=== PATIENT | female | born 1935 | race Caucasian/White ===

== ENCOUNTER 2019-01-19 22:00 | Inpatient (IN) | payer OTHER ==
[~2019-01-19] VITALS: Ht 157.5 cm; Wt 57.7 kg
[~2019-01-19 22:00] MED LIST: AVISTA; BACTRIM DS TAB1 EACH; IRON325; IRON325 PO; MEDROLDOSEPACK PO; PRILOSEC 20 MG20 MG PO; PROAIR HFA8.5 GM IH; PROTONIX40 M2 PO; SIMVASTATIN40 MG PO; ZPAK PO
[2019-01-19 22:01] VITALS: BP 162/41
[2019-01-19 22:39] LABS: URINE BILIRUBIN NEGATIVE (Negative); URINE BLOOD 1+ (Negative); URINE CLARITY CLEAR; URINE COLOR YELLOW; URINE GLUCOSE-RANDOM* NEGATIVE (Negative); URINE KETONES 3+ (Negative); URINE LEUKOCYTES-REFLEX NEGATIVE (Negative); URINE NITRITE-REFLEX NEGATIVE (Negative); URINE PROTEIN (DIPSTICK) TRACE (Negative); URINE SPECIFIC GRAVITY >= 1.030 (1.005-1.035); URINE UROBILINOGEN 0.2 E.U./dl (0.2-1.0)
[2019-01-19 23:06] LABS: BACTERIA-REFLEX None Seen /HPF (None Seen); CASTS None Seen /LPF (None Seen); CRYSTALS None Seen /LPF (None Seen); MUCUS 0-3 Light strn/LPF (None Seen); SQUAMOUS 4-10 Moderate /LPF (0-3); URINE RBC 3-10 Few /HPF (0-2); URINE WBC-REFLEX None Seen /HPF (0-5)
[2019-01-19 23:40] LABS: ABSOLUTE NEUTROPHILS 11.7 thou/uL (1.4-8.2); BASOPHILS 0.4 % (0.0-2.0); HEMATOCRIT 31.9 % (37.0-47.0); HEMOGLOBIN 10.2 gm/dL (12.0-15.0); MCH 23.6 pg (26.0-34.0); MCHC 32.1 g/dL (28.0-37.0); MCV 73.6 fL (80.0-100.0); MONOCYTES 5.1 % (1.0-8.0); PLATELET COUNT 443 thou/uL (150-400); POLYS 87.5 % (36.0-66.0); RBC 4.33 mil/uL (4.20-5.00); WBC 13.4 thou/uL (4.0-11.0)
[2019-01-19 23:48] LABS: ANION GAP 10 mmol/L (7-16); BUN 17 mg/dL (7-18); CALCIUM 9.3 mg/dL (8.5-10.1); CHLORIDE 102 mmol/L (98-107); CO2 26 mmol/L (21-32); CREATININE 0.8 mg/dL (0.6-1.0); GLUCOSE 149 mg/dL (74-106); POTASSIUM 4.4 mmol/L (3.5-5.1); SODIUM 138 mmol/L (136-145)
[2019-01-20] VITALS (7 sets, daily range): BP systolic 128–151; BP diastolic 46–71
[2019-01-20 00:04] LABS: ALBUMIN 3.4 g/dL (3.4-5.0); MAGNESIUM 2.1 mg/dL (1.8-2.4); SGOT 30 U/L (15-37); SGPT 22 U/L (30-65); TOTAL BILIRUBIN 0.4 mg/dL (<0.1-1.0); TOTAL PROTEIN 7.7 g/dL (6.4-8.2); TROPONIN-I <0.06 ng/mL (<0.06)
[2019-01-20 00:20] LABS: ANISOCYTOSIS 1+; HYPOCHROMASIA 1+; MICROCYTES 1+; OVALOCYTES 1+
--- NOTE | 2019-01-20 04:20 | NUR ---
PATIENT IS A NEW ADMIT D/T FALL AT AROUND SATURDAY 0200 AT HOME. PATIENT AOX4 MAKES NEEDS KNOWN. PATIENT SAYS SHE FEELS WEAK AND MOVING SLOWLY. PATIENT HAS A HEMATOMA ON LEFT EYE AND THE EYE IS SHUT. PATIENT DENIED PAIN OR DISCOMFORT. SKIN WARM AND INTACT AND APPROPRIATE TO RACE. PATIENT USES A BEDSIDE COMMODE. PATIENT HAD A BOWEL MOVEMENT X2. FALL PRECAUTION IN PLACE, CALL LIGHT WITHIN REACH. PATIENT NEED MAXIMUM ASSISTANCE WITH ADL, BED MOBILITY, TRANSFER AND TOILETING. PATIENT INCONTINENT AT TIMES WITH BOWEL AND BLADDER.PERICARE AND BARRIER CREAM APPLIED NEEDED. PATIENT IN BED ASLEEP AT THIS TIME BREATHING REGULAR AND UNLABOURED.
--- NOTE | 2019-01-20 09:12 | EKG ---
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 Claims Supervisor: lowell : 1935 Requested By: Agusto Angeles Order Number: [id number] MD: Allen Carlson Measurements Intervals [place] Rate: 93 P: 47 MA: 119 QRS: -50 QRSD: 92 T: -60 QT: 388 QTc: 483 Interpretive Statements Sinus rhythm Borderline short MA interval Left anterior fascicular block Nonspecific T wave abnormality Compared to ECG 10/01/2016 11:48:14 No significant change was found Electronically Signed On 01-20-2019 9:12:05 PLANT BU[employer] by Allen Carlson [email or web address] ��������������������������������������������� <ELECTRONICALLY SIGNED> ���������������������������������������� By: Allen Carlson MD, [facility] ��������������������������������������������� 01/20/19 0912 2320 Allen Carlson MD, [facility] /EPI
--- NOTE | 2019-01-20 13:59 | H ---
[facility] [place] [address] HISTORY AND PHYSICAL Name: JAMIE WALSH Justin Room #: 461-P ADM IN M.R.#: [id number] Admission: 01/20/19 ������������������ Attend Phys: Cj Boyer Discharge: ������������������ Date of : 39 Report #: [id number] THIS REPORT FOR: //name// CC: Bharat Asif DATE OF SERVICE: 01/20/2019 CHIEF COMPLAINT: Weakness. HISTORY OF PRESENT ILLNESS: The patient is an 83-year-old female who was admitted from home here to the Emergency Room after a fall in the bathroom. She got up in the middle of the night to go to the bathroom and she was preparing to sit on the toilet, sort of lost her balance and fell forward onto her left side. She bumped her head around her left eye on the floor and had a small abrasion with some bleeding. She denied any symptoms of loss of consciousness or pre-event symptoms of lightheadedness or palpitations. However, on the floor, she was too weak to get up or crawl for help and apparently lied in the bathroom for about 4 hours. Ultimately, it sounds her neighbors called to check on her and when she did not answer the phone, they alerted security at her living complex who entered the residence and found her in the bathroom and then called for 911. She was evaluated in the ER and admitted for continued treatment. PAST MEDICAL HISTORY: Dyslipidemia, hiatal hernia, dysphagia. PAST SURGICAL HISTORY: None. FAMILY HISTORY: Noncontributory. SOCIAL HISTORY: She lives in [place] community in the area. She does not receive any support, but there is security available. No chronic alcohol or tobacco use. ALLERGIES: None. MEDICATIONS: Zocor 40 mg. REVIEW OF SYSTEMS: She complains of left hand and left arm weakness. Otherwise, no headache, chest pain, visual change, abdominal pain, nausea, vomiting, diarrhea, constipation or dysuria. PHYSICAL EXAMINATION: VITAL SIGNS: Temperature 36.8, pulse 99, respirations 16, blood pressure 128/48, O2 sat 98% on room air. GENERAL: She is awake and alert, in no distress. HEAD AND NECK: There is bruising and swelling around the left eye. She does seem to have some down turning at the left corner of the mouth. Speech is [address] [address] HISTORY AND PHYSICAL Name: JAMIE WALSH Justin Room #: 461-P [facility] IN ..#: [id number] Admission: 01/20/19 ������������������ Attend Phys: Cj Boyer Discharge: ������������������ Date of : 39 Report #: [id number] fluent. NECK: No bruits. LUNGS: Clear with no wheezing. HEART: Regular, no murmur. ABDOMEN: Soft, normoactive bowel sounds. EXTREMITIES: No edema. NEUROLOGIC: She is oriented to place and situation. She recognized me from the office. 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 She seemed to have normal strength and movement of the left leg and foot. Laboratory and CT data reviewed. ASSESSMENT: 1. Probable stroke. 2. Mild rhabdomyolysis. 3. Microcytic anemia. 4. Accidental fall. PLAN: I will ask for an MRI of the brain. There were some concerning features on the CT head for developing stroke. She does have some neurologic symptoms evidenced by left hand weakness and some left facial droop, although it is hard to tell with the swelling around her left eye. Clearly at this point, she is beyond the therapeutic window for any consideration of thrombolytics, so at this point, if there are signs of stroke, there would be medical treatment only. She has requested do not resuscitate status, so I anticipate medical workup and then treatment conservatively with medications as indicated, therapies and we will see if she needs a structured living environment. I have asked Dr. Hill to see her in consultation. ��������������������������������������������� <ELECTRONICALLY SIGNED> ���������������������������������������� By: Chi Smith MD ��������������������������������������������� 01/20/19 1359 0956 1015 Chi Smith MD /nt
--- NOTE | 2019-01-20 14:13 | 2DMMODE ---
[facility] [address] [place] [address] 2 D/M-MODE ECHOCARDIOGRAM Name: JAMIE WALSH Room #: 461-P [facility] IN ..#: [id number] ������������� Admission: 01/20/19 ������������� Attend Phys: Bharat Jones Discharge: ��� ������������� ��� Date of : 39 Date of Service: 01/20/19 1413 �� Report #: [id number] �������� ��������������������������������������������[id number] THIS REPORT FOR: //name// APPROVED REPORT Study performed: 01/20/2019 12:52:27 EXAM: Comprehensive 2D, Doppler, and color-flow Echocardiogram Patient Location: Bedside Room #: 461 Status: routine BSA: 1.58 HR: 68 bpm BP: 128/48 mmHg Rhythm: NSR Other Information Study Quality: Adequate Indications CVA/TIA Echo Enhancing Agent Indication: Rule out Shunt Agent(s) / Amount(s) Used: Agitated Saline 7 cc 2D Dimensions RVDd: 33.53 mm IVSd: 8.94 (7-11mm) LVOT Diam: 19.34 (18-24mm) LVDd: 43.69 mm PWd: 7.98 (7-11mm) Ascending Ao: 27.14 (22-36mm) LVDs: 30.83 (25-40mm) Aortic Root: 27.26 mm IVC: 19.00 mm Volumes Left Atrial Volume (Systole) Single Plane 4CH: 32.77 mL Single Plane 2CH: 41.18 mL LA ESV Index: 26.00 mL/m2 Aortic Valve AoV Peak Jm.: 1.65 m/s AO Peak Gr.: 10.83 mmHg LVOT Max P.30 mmHg LVOT Max V: 1.04 m/s FLYNN Vmax: 1.85 cm2 [facility] [place] [address] 2 D/M-MODE ECHOCARDIOGRAM Name: JAMIE WALSH Room #: 461-P [facility] IN ..#: [id number] ������������� Admission: 01/20/19 ������������� Attend Phys: Bharat Jones Discharge: ��� ������������� ��� Date of : 39 Date of Service: 01/20/19 1413 �� Report #: [id number] �������� ��������������������������������������������[id number] Mitral Valve E/A Ratio: 0.9 MV Decel. Time: 240.13 ms MV E Max Jm.: 1.04 m/s MV A Jm.: 1.19 m/s MV PHT: 69.64 ms IVRT: 115.34 ms Pulmonary Valve PV Peak Jm.: 0.89 m/s PV Peak Gr.: 3.19 mmHg Pulmonary Vein P Vein S: 0.76 m/s P Vein A: 0.28 m/s P Vein D: 0.51 m/s P Vein A Dur.: 120.0 msec P Vein S/D Ratio: 1.49 Tricuspid Valve TR Peak Jm.: 2.93 m/s TR Peak Gr.: 34.29 mmHg PA Pressure: 39.00 mmHg Left Ventricle The left ventricle is normal size. There is normal LV segmental wall motion. There is normal left ventricular wall thickness. The left ventricular systolic function is normal. The left ventricular ejection fraction is within the normal range. LVEF is 55-60%. Grade I - abnormal relaxation pattern. Right Ventricle The right ventricle is normal size. The right ventricular systolic function is normal. Atria The left atrium size is normal. Interatrial septum is intact without evidence of ASD or PFO. The right atrium size is normal. Aortic Valve The aortic valve is normal in structure. Aortic valve is calcified. No aortic regurgitation is present. There is no aortic valvular stenosis. Mitral Valve The mitral valve is normal in structure. Mild mitral regurgitation. No evidence of mitral valve stenosis. Tricuspid Valve [address] [address] 2 D/M-MODE ECHOCARDIOGRAM Name: JAMIE WALSH Room #: 461-P [facility] IN [facility]#: [id number] ������������� Admission: 01/20/19 ������������� Attend Phys: Bharat Jones Discharge: ��� ������������� ��� Date of : 39 Date of Service: 01/20/19 1413 �� Report #: [id number] �������� ��������������������������������������������[id number] The tricuspid valve is normal in structure. There is mild tricuspid regurgitation. Estimated PAP 39 mmHg. There is mild pulmonary hypertension. Pulmonic Valve The pulmonary valve is normal in structure. Trace pulmonic regurgitation. Great Vessels The aortic root is normal in size. IVC is normal in size and collapses >50% with inspiration. Pericardium There is no pericardial effusion. <Conclusion> The left ventricle is normal size. LVEF is 55-60%. The aortic valve is normal in structure. Aortic valve is calcified. The mitral valve is normal in structure. Mild mitral regurgitation. The tricuspid valve is normal in structure. There is mild tricuspid regurgitation. Estimated PAP 39 mmHg. There is mild pulmonary hypertension. The pulmonary valve is normal in structure. Trace pulmonic regurgitation. There is no pericardial effusion. Interatrial septum is intact without evidence of ASD or PFO. ��������������������������������������������� <ELECTRONICALLY SIGNED> ���������������������������������������� By: Virgilio Sweeney MD ��������������������������������������������� 01/20/19 [phone] Virgilio Sweeney MD /INF
--- NOTE | 2019-01-20 15:47 | NUR ---
PT ADMITTED RELATED TO R MCA CVA. CM REVIEWED CHART AND SPOKE WITH CARE TEAM. CM MET WITH PT AT BEDSIDE THIS DAY. PT IS A&O X4. CM ROLE INTRODUCED. PT INDICATED SHE LIVES IN THE INDEPENDENT LIVING [facility]ID AT [facility]. 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 SHE INDICATED THAT SHE HADN'T USED ANY DME OR HAD ANY HH DRILLER BRAKE LINING. PT INDICATED THAT SHE WAS RECEPTIVE TO POST ACUTE CARE STAY IF RECOMMENDED UPON DC. CM SPOKE ABOUT 5N AND PT WAS RECEPTIVE TO ASSESSMENT. CM TO FOLLOW INDICATED WITH DC PLANNING.
--- NOTE | 2019-01-20 19:19 | NUR ---
PT VS STABLE THROUGHOUT SHIFT. PT WAS ABLE TO TOLERATE TRAVEL FOR VARIOUS MRI, MRA, CT 'S ETC. PT IS COGNIZANT AND CHOHERENT. PT WAS ABLE TO EACH SMALL LUNCH WITHOUT PROBLEMS HOWEVER ST EVAL SHOWED POCTEING AND SOME COUGHING WITH THIN LIQUIDS, DIET CHANGED ACCORDINGLY.
--- NOTE | 2019-01-21 01:36 | NUR ---
Patient admitted for rhabdo head injury. hematoma on left eye. patient not able to move her left arm. patient incontinent this shift pericare and barrier cream applied as needed. patient denied pain or discomfort.patient in bed asleep at this time breathing regular and unlaboured.
[2019-01-21 03:30] VITALS: BP 143/60
[2019-01-21 05:46] LABS: HEMATOCRIT 31.7 % (37.0-47.0); HEMOGLOBIN 9.8 gm/dL (12.0-15.0); MCH 22.9 pg (26.0-34.0); MCHC 31.1 g/dL (28.0-37.0); MCV 73.7 fL (80.0-100.0); RBC 4.3 mil/uL (4.20-5.00); RDW 18.3 % (10.5-14.5); WBC 8.9 thou/uL (4.0-11.0)
[2019-01-21 06:03] LABS: CALCIUM 9.4 mg/dL (8.5-10.1); CREATININE 0.7 mg/dL (0.6-1.0); POTASSIUM 3.9 mmol/L (3.5-5.1)
[2019-01-21 06:10] LABS: CHOLESTEROL 200 mg/dL (<200); HDL CHOLESTEROL 78 mg/dL (>40); LDL CHOLESTEROL 102 mg/dL (<100); TC:HDL 2.6 Ratio (Not establshd); TRIGLYCERIDE 104 mg/dL (<150); VLDL 21 mg/dL (<40)
[2019-01-21 07:25] VITALS: BP 150/53
[2019-01-21 13:48] VITALS: BP 123/56
--- NOTE | 2019-01-21 19:44 | NUR ---
Pt stable durig the shift, no complaints of pain or discomfort verbalized. Left sided weakness has been noted, but pt is able to get up to the commode with 2 persosn assists. PT was toro to work with the pt and was able to ambulate. Speech has evaluated and pt remeins to be in nectar thick liquids and mechanical chopped diet. Left eye remains to be swollen but can now open her eye. Seen by Dr. Hill, mentioned that pt is cleared from his stand point. Pericare and oal medication given.
[2019-01-21 20:00] VITALS: BP 148/58
--- NOTE | 2019-01-22 03:52 | NUR ---
ASSESSMENT: PT REMAIN ALERT AND ORIENT TIMES FOUR. USING BEDPAN DURING THE NIGHT FOR URINATION. VSS, AFEBRILE. NO CODE STATUS NOTED. PT STATE THAT SHE FEELS A LOT BETTER SINCE ADMISSION. LEFT EYE BRUISIING GETTER WATCH DIAL STONER. STILL HAVE LEFT FACIAL DROOPING. GRANITE POLISHER APPRENTICE EQUAL. DENIES PAIN. SR PER MONITOR. CALL BUTTON WITHIN REACH. TOLERATING NEW DIET OF MECH SOFT WITH NECTAR THICK LIQUIDS. PT SLEPT MOST OF THE SHIFT. SLOW PROGRESS WILL CONTINUE TO MONITOR. PT IS A CANIDATE FOR 5 NORTH UPON THEIR ACCEPTANCE OF HER. SLOW PROGESS TOWARDS DC GOALS.
[2019-01-22 05:00] VITALS: BP 134/57
[2019-01-22 07:40] VITALS: BP 126/43
[2019-01-22] MEDS ORDERED: LIPITOR 20 MG T20 M1 PO (10:29)
[2019-01-22] MEDS ORDERED: ASA5UEC PO (10:30)
--- NOTE | 2019-01-22 11:38 | NUR ---
Assumed pt this am, left eye still has bruising but is able to open close to normal. Left sided weakness is noted and left facial droop as well. Pt is tolerating the mechanical soft food and nectar thick liquids. Pt is able to transfer with her walker and gaitbelt from bed to commode and her recliner. Pt stayed in her recliner this am and had her breakfast. Her goal is to walk further today with PT.
--- NOTE | 2019-01-22 12:24 | NUR ---
AWAITING AUTH FOR [place] TO GO TO 5N ACUTE INPATIENT REHAB. CM FOLLOWING.
[2019-01-22 14:11] VITALS: BP 119/46
--- NOTE | 2019-01-22 16:24 | NUR ---
notified by 5n liaison that have insurance auth for acute rehab. pt to dc to 5n today. cm team notified 4w bedside nurse.
[2019-01-22 17:31] VITALS: BP 116/94
--- NOTE | 2019-01-22 19:17 | NUR ---
Pt stable during the shift, was able to walk from the bed to the recliner and spent most of her day there. Was able to work with PT and OT as well. Left eye opens better and bruising has decreased. Mechanical soft diet and nectar thick liquids are well tolerated. Pt has been moved to the rehab unit 511
--- NOTE | 2019-01-23 11:43 | D ---
[facility] [place] [address] DISCHARGE SUMMARY Name: JILLIANJAMIE Room #: 461-P [facility] IN M.R.#: [id number] Admission: 01/20/19 ������������������ Attend Phys: Cj Boyer Discharge: 01/22/19 ������������������ Date of : 39 Report #: [id number] THIS REPORT FOR: //name// CC: Bharat Asif FINAL DIAGNOSES: 1. Acute right middle cerebral artery stroke. 2. Right carotid stenosis. 3. Contusion of the left orbit. 4. Accidental fall. 5. Closed head injury. 6. Rhabdomyolysis. HOSPITAL COURSE: The patient was admitted after being found down at home in a fall. After evaluation and MRI revealed a right middle cerebral artery stroke and carotid stenosis, she was well outside the window of therapeutic option for medical treatment and at this time received conservative care. She was showing signs of left hand and arm weakness and some weakness in the left leg. She had no other medical complications. Dr. Hill saw her from Neurology in consultation. PHYSICAL EXAMINATION: On the day of discharge: GENERAL: She was awake and alert. VITAL SIGNS: Stable. LUNGS: Clear. HEART: Regular. ABDOMEN: Soft and normoactive bowel sounds. EXTREMITIES: No edema. 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 DISPOSITION: She is being transferred to inpatient rehabilitation. She will continue on aspirin and Lipitor. I will follow her stay along with Dr. Wilcox in the recovery phase and in 6 to 12 weeks, we will consider surgical treatment for the carotid stenosis after discussion in the office. ��������������������������������������������� <ELECTRONICALLY SIGNED> ���������������������������������������� By: Chi Smith MD ��������������������������������������������� 01/23/19 1143 1034 1052 Chi Smith MD /nt
--- NOTE | 2019-01-26 13:50 | HC ---
[facility] [place] [address] CONSULTATION Name: JILLIANJAMIE A Room #: 461-P [facility] IN M.R.#: [id number] Admission: 01/20/19 ������������������ Attend Phys: Cj Boyer Discharge: 01/22/19 ������������������ Date of : 37 Report #: [id number] THIS REPORT FOR: //name// CC: Bharat Asif DATE OF SERVICE: 01/20/2019 HISTORY OF PRESENT ILLNESS: This is an 83-year-old female patient who indicates she lives alone. Yesterday, she tried to go to the bathroom and she fell. She was not able to get up. She was there for several hours. Somebody asked the security to open her apartment and then she was brought to the hospital. She was evaluated in the Emergency Room. She had facial injury. They cleared her spine and admitted her. Neurology consultation was requested to evaluate the patient for stroke. REVIEW OF SYSTEMS: Indicate she does have dyslipidemia, but otherwise there are not that many vascular risk factors in this patient. A 14-point review of system was carried out and does not look like she is on any medications here and she already had an echocardiogram that appear unremarkable. She has facial trauma on the left side of the face, but does not look like that has affected her eye. She denies any ENT, cardiac, respiratory, GI, , musculoskeletal, constitutional, dermatological, hematological, psychiatric, throat, allergic symptom associated with present symptomatology except as described above. PAST MEDICAL HISTORY: Negative for stroke. FAMILY HISTORY: Negative for early age stroke. SOCIAL HISTORY: She lives in an independent living. PHYSICAL EXAMINATION: Indicate she is alert, responsive, able to follow simple and complex command. Her speech looks intact. Memory and fund of knowledge is her baseline. Cranial nerve examination 2-12 is difficult because of facial injury, but there is left facial weakness. She is pretty significantly weak in the left upper and left lower extremities. She has significant neglect there. Her position sense is diminished or absent on the left side, but she does not have any hemianopsia. There does not appear to be any cerebellar sign. I could not look at the fundus. Cardiac examinations appear unremarkable. She does not appear to have any respiratory difficulty or rhonchi. Pulses are somewhat difficult to feel. No edema is present. Blood pressure is 134/46, respirations 15, pulse is 80, temperature 98.2. Her vision and hearing looks adequate. She has no obvious thyroid mass. She is obese individual whose hearing and vision looks adequate. LABORATORY DATA: Indicate a white count of 13.4. CPK is 1452. MRI, [address] [address] CONSULTATION Name: JAMIE WALSH Room #: 461-P [facility] IN M.R.#: [id number] Admission: 01/20/19 ������������������ Attend Phys: Cj Boyer Discharge: 01/22/19 ������������������ Date of : 37 Report #: [id number] of the head was reviewed. They are all consistent with a stroke on the right side, probably because of carotid stenosis. Echo was reviewed. IMPRESSION: 1. Large right middle cerebral artery infarct. 2. Carotid stenosis, which need to be addressed once the stroke stabilizes. 3. This patient has a profound neglect of her deficit on the left side. She tried to walk with the neglect not realizing that she is weak and then she fell down and that is what typically happens in these individuals. RECOMMENDATIONS: 1. We will start aspirin. 2. She will probably be a rehab candidate. 3. Carotid stenosis need to be addressed, but the stroke need to stabilize first. 4. I will try to estimate the carotid stenosis by doing a MRA of the carotid. 5. I asked them to give aspirin. 6. Nurses tell me that she has been swallowing okay and she has not shown any signs of aspiration at bedside. I did ask them to give some water and document that bedside swallow is okay. Thank you very much for this referral. ��������������������������������������������� <ELECTRONICALLY SIGNED> ���������������������������������������� By: Shun Hill MD ��������������������������������������������� 01/26/19 1350 1520 [id number] Shun Hill MD /nt
--- NOTE | 2019-01-27 11:02 | HC ---
[facility] [place] [address] CONSULTATION Name: JAMIE WALSH Room #: 461-P [facility] IN .R.#: [id number] Admission: 01/20/19 ������������������ Attend Phys: Cj Boyer Discharge: 01/22/19 ������������������ Date of : 37 Report #: [id number] THIS REPORT FOR: //name// CC: Bharat Asif DATE OF SERVICE: 01/21/2019 HISTORY OF PRESENT ILLNESS: The patient is an 83-year-old white female who lives independently in the [facility] who had a fall in the bathroom. She lost her balance bumped her head on the left. She apparently laid on the floor for about 4 hours. She was admitted, noted to have significant left-sided weakness, upper extremity greater than lower extremity. She was seen by Neurology, noted to have left upper and lower extremity weakness. There was a note of some neglect. 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 She does have carotid stenosis. We are seeing her in rehabilitation medicine consultation. PAST MEDICAL HISTORY: Dyslipidemia, hiatal hernia, dysphagia. PAST SURGICAL HISTORY: None. FAMILY HISTORY: Noncontributory. MEDICATIONS: Please see the full medication listing. This includes vitamins, herbals, and supplements per record. ALLERGIES: No known drug allergies. SOCIAL HISTORY: As noted above. She lives in an independent [facility]. She has a sister and a niece and a nephew that are all in the [place] area. HABITS: No history of chronic alcohol or tobacco abuse. REVIEW OF SYSTEMS: She has the left upper extremity more than the left lower extremity weakness. Denies any headache. No chest pain, shortness of breath, abdominal discomfort. No dysuria, diarrhea, constipation. PHYSICAL EXAMINATION: GENERAL: Pleasant 83-year-old white female in no obvious distress. VITAL SIGNS: Temperature is 97.7, pulse 77, respirations 15, blood pressure 150/53. She is alert. HEENT: Reveals ecchymosis, left facial area and some lateral periorbital ecchymosis. She has an obvious significant left facial droop with depressed left nasolabial fold. She has some dysarthria, but is able to communicate. No obvious word finding problems. EOMs appeared to be full and I could not detect any obvious left-sided visual field neglect to confrontation. [facility] [address] [place] [address] CONSULTATION Name: JAMIE WALSH Room #: 461-P [facility] IN M.R.#: [id number] Admission: 01/20/19 ������������������ Attend Phys: Cj Boyer Discharge: 01/22/19 ������������������ Date of : 37 Report #: [id number] EXTREMITIES: Upon examination of her upper and lower extremities, she does have functional range of motion and strength of the right upper and right lower extremity without focal weakness. Left upper extremity proximal strength is a grade 3 to 3+. No movement was noted of the wrist or fingers at this time. Left lower extremity strength appeared better at more of a grade 3+, possibly 4-. DTRs were somewhat decreased in left upper and left lower extremity. Sensory examination was present, although some mild decreased left upper and left lower extremity to simultaneous stimulation. Functionally, she has been mod assist with toilet transfers, sit to stand was mod assist. She was max assist 5 feet front-wheeled walker. ASSESSMENT: An 83-year-old white female with the following problem list: 1. Right middle cerebral artery infarcts. 2. Right-sided carotid stenosis. 3. 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 4. Left facial droop with some dysarthria. 5. Functional mobility, ADLs and communication deficits. Being evaluated regarding swallow. 6. History of dyslipidemia. 7. Hiatal hernia. PLAN: Agree that the patient would be a good acute in-hospital inpatient rehabilitation candidate. She is very well motivated. Insurance precertification issues to be checked into regarding an acute in-hospital inpatient rehabilitation stay to maximize her functional independence post-CVA. She is appropriate and very motivated regarding her rehabilitation. ��������������������������������������������� <ELECTRONICALLY SIGNED> ���������������������������������������� By: Chi Wilcox MD ��������������������������������������������� 01/27/19 1102 1113 1345 Chi Wilcox MD /nt
== END 2019-01-22 19:51 | DRG 65 ==
LOC: ER 22:00 → EROBS 01-20 00:28 → 4W 01-20 00:28
PROVIDERS: Emergency Medicine; Internal Medicine Geriatric Medicine; Psychiatry & Neurology Neuromuscular Medicine; ADMIT Internal Medicine
DX: I63.511 Cerebral infarction due to unspecified occlusion or stenosis of right middle cerebral artery (principal); M62.82 Rhabdomyolysis; G81.94 Hemiplegia, unspecified affecting left nondominant side; E78.00 Pure hypercholesterolemia, unspecified; S09.90XA Unspecified injury of head, initial encounter; W18.39XA Other fall on same level, initial encounter; Y93.89 Activity, other specified; Y92.89 Other specified places as the place of occurrence of the external cause; Y99.8 Other external cause status; E78.5 Hyperlipidemia, unspecified; K44.9 Diaphragmatic hernia without obstruction or gangrene; R29.810 Facial weakness; R47.1 Dysarthria and anarthria; S05.12XA Contusion of eyeball and orbital tissues, left eye, initial encounter; D50.9 Iron deficiency anemia, unspecified; Z79.899 Other long term (current) drug therapy
CPT/HCPCS: 10045

== ENCOUNTER 2019-01-22 16:20 | Inpatient (IN) | payer OTHER ==
[~2019-01-22] VITALS: Ht 157.5 cm; Wt 73.0 kg
[~2019-01-22 16:20] MED LIST changes: +ASA5UEC PO; +LIPITOR 20 MG T20 M1 PO
[2019-01-22 20:30] VITALS: BP 144/72
--- NOTE | 2019-01-22 23:30 | NUR ---
FROM 4TH FLOOR AT 1900, PATIENT UNDERSTANDS AND IS SIGNING CONSENTS. ORIENTED TO UNIT AND IS LOOKING FORWARD TO WORKING WITH THERAPISTS. AWARE OF NEED FOR MECHANICAL SOFT FOOD AND NECTAR THICK LIQUIDS. WALKER, YELLOW GAIT BELT, AND BSC OBTAINED FOR PATIENT. ABILITY TO USE CALL LIGHT WITH RIGHT HAND VERIFIED. ADMISSION HISTORY AND ASSESSMENT DONE, DID WELL WITH COGNITIVE ASSESSMENT QUESTIONS.
[2019-01-23 05:52] LABS: HEMOGLOBIN 9.7 gm/dL (12.0-15.0); MCH 23.3 pg (26.0-34.0); MCHC 31.4 g/dL (28.0-37.0); MCV 74.1 fL (80.0-100.0); RBC 4.18 mil/uL (4.20-5.00); RDW 18.1 % (10.5-14.5)
[2019-01-23 08:05] LABS: CALCIUM 9.3 mg/dL (8.5-10.1); CREATININE 0.8 mg/dL (0.6-1.0); POTASSIUM 3.9 mmol/L (3.5-5.1)
[2019-01-23 08:56] VITALS: BP 150/57
--- NOTE | 2019-01-23 12:00 | NUR ---
chart review. pt up in wheel chair, pleasant and able to make her needs know. new cva. intro to cm, dcp, transition of care and team meets. alison reported " all independent prior to this, no stair at all. no dme, own medication, cooking, laundry, have lady who cleans q 2 weeks. no past rehab or hh"/alison. will cont following as needed for dc needs.
--- NOTE | 2019-01-23 12:47 | NUR ---
Nutrition: pt admitted to rehab unit with R mid cerebral artery infarcts and seen due to consult, no reason given. Pt with stable weights but c/o decreased appetite over the past 3 days since admit to hospital. Just returned from [facility] and diet upgraded to chopped, regular liquids. Understands how to order meals. Will offer ensure pudding once daily and follow for improved intake. Otherwise low risk.
--- NOTE | 2019-01-23 18:32 | NUR ---
PATIENT ALERT AND ORIENTED. PATIENT PASS SWALLOW TEST. PATIENT EVALUATED BY REHAB TEAM. PATIENT UP TO DINING ROOM FOR MEALS USING HER WALKER. PATIENT HAD VISITORS DURING THE DAY AND NEPHEW IN THE EVENING. PATIENT HAD DIFFICULTY AMBULATING FROM THE BATHROOM AND COULDN'T FIND THE PULL STRING NEXT TO THE TOILET.
[2019-01-23 19:51] VITALS: BP 127/54
--- NOTE | 2019-01-24 04:41 | NUR ---
NOW TOLERATING SIPS OF THIN LIQUIDS. UP TO BATHROOM WITH SBA ONCE UP USING WALKER. 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 DETERMINED TO GET STRONGER. STILL NEEDING ASSIST TO GET FEET BACK UP IN THE BED
[2019-01-24 08:30] VITALS: BP 114/55
--- NOTE | 2019-01-24 14:45 | NUR ---
ASSUMED CARE AT APPROX 0715. PATIENT A/O X4. DENIES PAIN. UP X1 ASSIST, GB AND WALKER. VSS. PARTICIPATING IN THERAPY. PATIENT C/O DISCOMFORT AT IV SITE. SITE ASSESSED, NO ERYTHEMA OR DRAINAGE NOTED. IV REMOVED PER PATIENT REQUEST. MINIMAL SWELLING IN LEFT EXTREMITY AND BLE, LEGS ELEVATED AT REST. FALL PRECAUTIONS IN PLACE. PATIENT CALLS APPROPRIATELY FOR ASSISTANCE. OUT TO TABLES FOR MEALS. RESTING IN RECLINER, FAMILY AT BEDSIDE. WILL CONTINUE TO MONITOR.
[2019-01-24 19:29] VITALS: BP 126/60
--- NOTE | 2019-01-25 04:11 | NUR ---
ASSUMED CARE OF PT AT 1915. PT ALERT AND ORIENTED X4. LUE WEAK, WITH SOME LEFT NEGLECT. SLIGHT LEFT FACIAL DROOP NOTED. AMBULATES TO BATHROOM WITH ASSIST OF ONE USING GAIT BELT AND WALKER. DENIES PAIN, NAUSEA OR DYPSNEA. HAS APPEARED TO BE SLEEPING WHEN CHECKED ON HOURLY ROUNDS. FALL PRECAUTIONS IN PLACE.
[2019-01-25 08:31] VITALS: BP 120/51
--- NOTE | 2019-01-25 19:19 | NUR ---
PATIENT ALERT AND ORIENTED. PATIENT WALKED WITH WALKER AND SBA TO DINING ROOM FOR ALL MEALS. PATIENT REQUESTED AND WAS ABLE TO WASH FACE WHILE SITTING IN CHAIR AND WALKED TO BATHROOM TO BRUSH TEETH. PATIENT SAT IN CHAIR MOST OF THE DAY AND HAD MULTIPLE VISITORS. PATIENT IS VERY MOTIVATED TO MAKE PROGRESS AND WOULD LIKE TO RETURN TO HER [facility]. SHE CONTINUES TO MAKE PROGRESS TOWARDS HER REHAB GOALS.
[2019-01-25 20:00] VITALS: BP 147/56
--- NOTE | 2019-01-26 02:06 | NUR ---
PT ALERT AND ORIENTED X 4. AMB TO BR WITH WALKER AND ASSIST X 1. LEFT SIDED WEAKNESS. PT DENIES PAIN OR DISCOMFORT. BED ALARM ON FOR SAFETY. PT CHECKED ON HOURLY ROUNDS.
[2019-01-26 08:20] VITALS: BP 120/46
--- NOTE | 2019-01-26 13:04 | NUR ---
ASSUMED CARE AT APPROX 0715. REPORTS DIDN'T SLEEP WELL LAST NIGHT. DISCUSSED ABOUT MELATONIN AND SHE SAID SHE WOULD LIKE TO BE ON IT. PATIENT A/O X4. DENIES PAIN. UP X1 ASSIST, GB AND WALKER TO BATHROOM. VSS. PARTICIPATING IN THERAPY. MINIMAL SWELLING IN LEFT EXTREMITY AND BLE, LEGS ELEVATED AT REST. REASSESSMENT PER CHART. BS HYPOACTIVE. REPORTS HAD SMALL HARD BM. GAVE PRN SENNOKOT. NO RESULT YET. DR. CHANDLER MADE ROUND AND NOTIFIED HIM ABOUT INSOMINA AND CONSTIPATION. ORDERS RECEIVED. PT HAS SLURRED SPEECH AND LEFT SIDE WEAKNESS. ST CONTINUE TO WORK WITH PT ON VITAL STEM. PT TOOK MEDS ONE AT THE TIME WITH THIN LIQUID AND TOLERATES WELL. OFFERED SUPPORTIVE CARE. LABS REVIEWED, MEDS GIVEN. ENCOURAGED PT TO CONTINUE TO WORK TOWARD DISCHARGE GOALS. PT IS MOTIVATED, IN GOOD SPIRIT.FALL PRECAUTIONS IN PLACE. PATIENT CALLS APPROPRIATELY FOR ASSISTANCE. OUT TO TABLES FOR MEALS. RESTING IN RECLINER, LEGS UP WHEN SHE IS NOT IN THERAPY. SISTER AT BEDSIDE. WILL CONTINUE TO MONITOR.
[2019-01-26 19:50] VITALS: BP 139/55
--- NOTE | 2019-01-27 02:30 | NUR ---
PT ALERT AND ORIENTED X 4. AMB TO BR WITH WALKER AND ASSIST X 1. LEFT SIDED WEAKNESS. PT TOOK HS MEDS IN APPLESAUCE WITHOUT DIFFICULTY. PT DENIES PAIN OR DISCOMFORT. BED ALARM ON FOR SAFETY. PT APPEARS TO BE SLEEPING ON HOURLY ROUNDS.
--- NOTE | 2019-01-27 09:27 | NUR ---
ASSUMED CARE AT APPROX 0715. REPORTS SLEPT WELL LAST NIGHT WITH MELATONIN. MINIMAL SWELLING IN LEFT EXTREMITY AND BLE, LEGS ELEVATED AT REST. REASSESSMENT PER CHART. HAD LARGE SOFT BM LAST NIGHT. REPORTS COLACE CAUSED STOMACH CRAMP, DOESN'T WANT TO BE ON IT AND WILL EAT MORE FRUITS AND VEGATABLES INSTEAD. DR. CHANDLER AWARES. PT HAS SLURRED SPEECH AND LEFT SIDE WEAKNESS. ST CONTINUE TO WORK WITH PT ON VITAL STEM THIS AM. ATE 100% BREAKFAST. PT TOOK MED ONE AT THE TIME WITH THIN LIQUID AND TOLERATES WELL. OFFERED SUPPORTIVE CARE. ENCOURAGED PT TO CONTINUE TO WORK TOWARD DISCHARGE GOALS. PT IS MOTIVATED, IN GOOD SPIRIT.FALL PRECAUTIONS IN PLACE. PATIENT CALLS APPROPRIATELY FOR ASSISTANCE. OUT TO TABLES FOR MEAL. RESTING IN RECLINER, LEGS UP WHEN SHE IS NOT IN THERAPY. WILL CONTINUE TO MONITOR.
--- NOTE | 2019-01-27 12:54 | NUR ---
team meeting, recommendation: re team with possible dc 02/06/19, defect with left side, will need assist with medication, cooking, money management, paying pills.
[2019-01-27 14:35] VITALS: BP 126/47
[2019-01-27 19:12] VITALS: BP 134/54
--- NOTE | 2019-01-28 04:00 | NUR ---
Assumed care of pt at 1915. Pt alert and oriented x4. Up in chair through the evening. Ambulates to bathroom with SBA of one using gait belt and walker. Left arm remains weak, some neglect noted. Has appeared to be sleeping when checked on hourly rounds. Fall precautions in place.
[2019-01-28 09:30] VITALS: BP 128/56
--- NOTE | 2019-01-28 11:50 | NUR ---
ASSUMED CARE AT APPROX 0715. VSS ON RA. UP TO DINNING FOR BREAKFAST, ATE ABOUT 75% THIS AM. PT REPORTS SLEPT WELL LAST NIGHT WITH MELATONIN. MINIMAL SWELLING IN LEFT EXTREMITY AND BLE, LEGS ELEVATED AT REST. REASSESSMENT PER CHART. LAST BM WAS 2 DAYS AGO. BS HYPOACTIVE. PT DOESN'T LIKE TO TAKE LAXATIVE. OFFERED PRUNE JUICE AND WILL TAKE IT AFTER THERAPIST. PT HAS SLURRED SPEECH AND LEFT SIDE WEAKNESS GETS BETTER. PT HAS URGENCY URINATION. ASSIST PT TO BATHROOM PER REQUEST. ST CONTINUE TO WORK WITH PT ON VITAL STEM THIS AM. PT TOOK MED ONE AT THE TIME WITH THIN LIQUID AND TOLERATES WELL. OFFERED SUPPORTIVE CARE. ENCOURAGED PT TO CONTINUE TO WORK TOWARD DISCHARGE GOALS. PT IS MOTIVATED, IN GOOD SPIRIT.FALL PRECAUTIONS IN PLACE. PATIENT CALLS APPROPRIATELY FOR ASSISTANCE. CALL LIGHT WITH IN REACH. CHECK FREQUENTLY FOR NEEDS AND SAFETY.
--- NOTE | 2019-01-28 12:13 | NUR ---
cm provided report to liaison with w re team with possible dc 02/06/19 " will pass on to [facility] and pt had been talking with [facility] prior to this and she might benefit from al respite stay before going back to her [facility]. [facility] is fine with who every pt wants"/liaison. rediscussed with " do not care, [facility] is fine if have st in needed. thanks for stopping by"/alison. will cont following as needed for dcp, brochure for [facility] left with pt at bedside.
[2019-01-28 19:30] VITALS: BP 154/61
--- NOTE | 2019-01-29 00:31 | NUR ---
PT ASSESSMENT COMPLETED AND VSS. MEDS GIVEN ORDERED AND WELL TOLERATED. UP TO THE BATHROOM WITH ASST/GAIT/WALKER. PT NEEDS HELP LOWERING AND PULLING UP HER PANTS. VOIDING WELL. DENIES NEEDS. WILL CONTINUE TO MONITOR FREQUENTLY.
--- NOTE | 2019-01-29 07:25 | NUR ---
Pt PARTICIPATED IN COMMUNITY REINTEGRATION ON 01/28/19 WITH OT. PLEASE REFER TO OT DOCUMENTATION
[2019-01-29 07:30] VITALS: BP 101/50
--- NOTE | 2019-01-29 16:14 | NUR ---
ASSUMED CARE AT APPROX 0715. PATIENT A/O X4. DENIES PAIN. PARTICIPATING IN THERAPY. UP X1 ASSIST GB AND WALKER. CUES TO ATTEND TO LEFT SIDE. TOLERATED PILLS 1 AT A TIME WITH THIN LIQUIDS WITH ST SUPERVISION. C/O CONSTIPATION, STATED SHE WOULD BE OPEN TO DRINKING PRUNE JUICE OR WARM APPLE JUICE, REPORTED BOWEL AIDS ON EMAR CAUSE HER ABDOMINAL CRAMPING AND DIARRHEA. ALTERNATIVE MEASURES FOR BOWEL ASSISTANCE OFFERED, WILL CONTINUE TO MONITOR. FALL PRECAUTIONS IN PLACE. PATIENT CALLS APPROPRIATELY FOR ASSISTANCE.
[2019-01-29 20:32] VITALS: BP 138/58
--- NOTE | 2019-01-30 04:53 | NUR ---
ASSUMED CARE OF PT AT 1915. PT ALERT AND ORIENTED X4, CALM AND COOPERATIVE. UP IN CHAIR THROUGH THE EVENING, AMBULATES TO BATHROOM WITH SBA OF ONE, USES GAIT BELT AND WALKER. DENIES PAIN, NAUSEA OR DYPSNEA. LEFT ARM REMAINS WEAKER, SOME NEGLECT CONTINUES. HAS APPEARED TO BE SLEEPING WHEN CHECKED ON HOURLY ROUNDS. BED ALARM ON.
[2019-01-30 08:00] VITALS: BP 117/50
--- NOTE | 2019-01-30 13:28 | NUR ---
Nutrition: Pt seen per followup on rehab unit. Pt no longer requires modified consistency diet, on regular now. Eating 50-100% of meals and states receiving too much food. D/C ensure pudding. Reinforced how to order meals if desired. No new weight since 01/22 but previously reported stable weights. REC obtain new weight otherwise continue as low risk.
[2019-01-30 20:05] VITALS: BP 128/50
--- NOTE | 2019-01-30 20:11 | NUR ---
ASSUMED CARE OF PT AT 0715. PT IS A&OX4. IS ON ROOM AIR. DENIES PAIN. IS UP WITH 1 ASSIST, GB, WALKER WITH LEFT SIDED WEAKNESS. FALL PRECAUTIONS & HOURLY ROUNDING MAINTAINED. LABS & VITALS REVIEWED. PT IS STABLE. IS CONT TO B&B. USES CALL LIGHT APPROPRIATELY. WILL CONTINUE TO MONITOR.
--- NOTE | 2019-01-31 00:36 | NUR ---
PT ASSESSMENT COMPLETED AND VSS. MEDS GIVEN ORDERED AND WELL TOLERATED. UP TO THE BATHROOM WITH ASST/GAIT/WALKER. STEADY. PT IS IMPROVING WITH CHECKING THAT HER LEFT HAND IS ON WALKER BEFORE MOVING. REMINDED PT SEVERAL TIMES TO CHECK HER LOCATION BEFORE SITTING ON THE TOILET. MANY TIMES SHE IS TOO FAR TO THE SIDE OF THE TOILET AND DOESN'T ALWAYS CHECK TO MAKE SURE THAT SHE IS IN THE RIGHT LOCATION. SLEEPING WELL. WILL CONTINUE TO MONITOR FREQUENTLY.
[2019-01-31 07:53] VITALS: BP 106/44
--- NOTE | 2019-01-31 11:30 | NUR ---
ASSUMED CARE AT APPROX 0715. PATIENT A/O X4. DENIES PAIN. UP IN CHAIR. OUT TO TABLES FOR MEALS. VSS. DR. RIVAS ROUNDED ON PATIENT, STATED NEXT LABS WOULD BE ORDERED FOR SATURDAY. PATIENT UP X1. SUPERVISION TO MIN ASSIST WITH ADLS. SCHEDULED MEDS GIVEN PER ORDERS. FEET ELEVATED FOR PERIODS WHILE AT REST. FALL PRECAUTIONS IN PLACE. PATIENT ATTENDING MORE TO LEFT SIDE WITH LESS FREQUENT CUES THIS DATE. ROUNDED ON HOURLY. WILL CONTINUE TO MONITOR.
[2019-01-31 19:40] VITALS: BP 135/45
--- NOTE | 2019-02-01 03:54 | NUR ---
UP WITH WALKER TO TOILET. LEFT SIDE NEGLECT APPARENT, USING WALKER TO STEADY AND STRAIGHTEN HER GAIT. LIKES TO SIT UP IN HER CHAIR FOR ALL DAYLIGHT HOURS.
[2019-02-01 07:30] VITALS: BP 109/50
--- NOTE | 2019-02-01 11:19 | NUR ---
ASSUMED CARES AT 0700. PT AWAKE ON THE RECLINER, ALERT AND ORIENTED *4. DENIES PAIN. VITALS REMAINED STABLE. PT CONTINUES TO HAVE MILD BLE EDEMA, PULSES ARE 2+, EXTREMITIES ELEVATED. PT CONTINUES TO HAVE LEFT SIDED HEMIPARESIS AND HAS TROUBLE FOCUSING ON OBJECTS ON THE LEFT SIDE. HAD HER MEALS AT THE DINING AREA. UP WITH 1 PERSON MIN ASSIST, GAITBELT AND WALKER AND TOLERATED WELL. Q1H VISUAL CHECKS. CALL LIGHT WITHIN REACH. FALL PRECAUTIONS IN PLACE
[2019-02-01 19:42] VITALS: BP 125/52
--- NOTE | 2019-02-01 23:09 | NUR ---
PT ASSESSMENT COMPLETED AND VSS. MEDS GIVEN ORDERED AND WELL TOLERATED. FALL PRECAUTIONS IN PLACE. UP WITH ASST/GAIT/WALKER. STEADY. REMINDING PT TO LOOK AT HER LEFT SIDE TO PREVENT LEFT NEGLECT. SLEEPING WELL. DENIES NEEDS. WILL CONTINUE TO MONITOR FREQUENTLY.
[2019-02-02 04:03] LABS: CALCIUM 9.2 mg/dL (8.5-10.1); CREATININE 0.9 mg/dL (0.6-1.0); POTASSIUM 4.1 mmol/L (3.5-5.1)
[2019-02-02 04:25] LABS: HEMOGLOBIN 9.8 gm/dL (12.0-15.0); MCH 23.6 pg (26.0-34.0); MCHC 31.7 g/dL (28.0-37.0); MCV 74.4 fL (80.0-100.0); RBC 4.17 mil/uL (4.20-5.00); WBC 7.8 thou/uL (4.0-11.0)
[2019-02-02 07:30] VITALS: BP 123/53
--- NOTE | 2019-02-02 11:38 | NUR ---
ASSUMED CARES AT 0700. PT AWAKE, ALERT AND ORIENTED*4. DENIES PAIN. VITALS REMAINS STABLE. MILD BLE EDEMA, EXTREMITIES ELEVATED WHEN SITTING. SKIN REMAINS INTACT. PT UP WITH 1 PERSON MIN ASSIST, AMBULATED WITH THERAPY AND TOLERATED WELL. PT CONTINUES TO HAVE FREQUENCY URINE OUTPUT, URINE IS LIGHT YELLOW, CLEAR AND NO FOUL ODOR. Q1H VISUAL CHECKS. CALL LIGHT WITHIN REACH. FALL PRECAUTIONS IN PLACE
[2019-02-02 19:00] VITALS: BP 133/56
--- NOTE | 2019-02-03 00:39 | NUR ---
assumed care at approx 1900 evening 3/4. pt sitting up in recliner at change of shift resting and watching tv. pt alert and oriented x4, appropriate and cooperative. pt denies pain. pt up to bathroom to void with 1 assist. pt appears to be sleeping soundly with hourly rounding checks. bed alarm on and call light in reach. will continue to monitor.
[2019-02-03 07:40] VITALS: BP 124/57
--- NOTE | 2019-02-03 09:54 | NUR ---
ASSUMED CARES AT 0700. VSS ON RA. ALERT AND ORIENTED *4. ABLE TO VOID HER NEEDS. REPORTS SLEPT GOOD. DOESN'T LIKE SCD, IT KEEPS ME AWAKE SO SHE GOT UP TO RECLINER BECAUSE SHE HAS BACK PAIN IF SHE SLEEPS IN BED FOR A LONG TIME. DENIES PAIN, N/V AND CONSTIPATION. LAST BM WAS 2DAYS AGO. PT CONTINUES TO HAVE MILD BLE EDEMA, PULSES ARE 2+, EXTREMITIES ELEVATED. PT CONTINUES TO HAVE LEFT SIDED HEMIPARESIS AND HAS TROUBLE FOCUSING ON OBJECTS ON THE LEFT SIDE. UP TO THE DINING AND ATE BREAKFAST, ATE 100% BREAKFAST. UP WITH 1 PERSON MIN ASSIST, GAITBELT AND WALKER AND TOLERATED WELL. Q1H VISUAL CHECKS. CALL LIGHT WITHIN REACH. FALL PRECAUTIONS IN PLACE. SISTER AT BEDSIDE. WILL CONTINUE TO MONITOR AND OFFER SUPPORT. HER GOALS ARE TO GET STRONGER AND ABLE TO TAKE CARE OF HERSELF AT HOME.
[2019-02-03 19:48] VITALS: BP 129/53
--- NOTE | 2019-02-04 01:25 | NUR ---
PT ASSESSMENT COMPLETED AND VSS. MEDS GIVEN ORDERED AND WELL TOLERATED. FALL PRECAUTIONS IN PLACE. PT DENIES PAIN/N/SOA. UP TO THE BATHROOM WITH ASST/GAIT/WALKER. PT IMPROVING WITH HER LEFT NEGLECT. SLEEPING WELL. WILL CONTINUE TO MOITOR FREQUENTLY.
[2019-02-04 07:53] VITALS: BP 103/50
--- NOTE | 2019-02-04 11:51 | NUR ---
Late entry from yesterday 02/03/19: Dental Director visited with the pt after team conference. Team recommendations reveiwed. They are requesting insurance auth for one additional week through Saturday02/11/19. HH f/u recommended for RN,PT, OT and ST. No driving. oCdie walker recommended and the pt does not have one. Pt has indicated preference for [facility]. Pt continues to need ST/OT for left vision field deficit. They are working on adl's and on med mgnmt and higher functioning skills. Pt's sister Joana will be able to take her home at dc and spend one night with her. She does not want to go to respite in the [place] at [facility]. She wants to return to her [facility]. She can have one meal a day delievered and utlize their transport. She is receptive to private duty resources. Yara from [facility] will be coming over the visit with her tomorrow and will bring a list of private duty. She may need ADL support and she will be home alone when her sister leaves. She is walking 250'sba with FWW and min A with adl's. Will reteam on 02/10 with potential dc to home with hh on 02/11.
--- NOTE | 2019-02-04 16:41 | NUR ---
ASSUMED CARE AT APPROX 0715. PATIENT A/O X4. VSS. UP X1 ASSIST GB AND WALKER. PARTICIPATED IN THERAPY. PRACTICING MED MANAGEMENT WITH SPEECH THERAPY, PATIENT CORRECTLY VERBALIZED MEDICATION SHE TAKES IN AM AND PM. DENIES PAIN, N/V/D. FALL PRECAUTIONS IN PLACE. PATIENT CALLS APPROPRIATELY. ROUNDED ON HOURLY, WILL CONTINUE TO MONTIOR.
[2019-02-04 20:27] VITALS: BP 135/48
--- NOTE | 2019-02-05 02:47 | NUR ---
CALLING FOR ASSIST TO GET UP TO BATHROOM, STANDBY ASSIST WITH CUE TO GRAB WALKER WITH LEFT HAND, STEADY GAIT. CALLED AT 2029 FOR MELATONIN 5 MG PO. NO COMPLAINTS OF PAIN. GLAD THAT SHE IS ABLE TO SWALLOW PILL WITH WATER NOW, INSTEAD OF APPLE SAUCE
[2019-02-05 08:45] VITALS: BP 125/49
--- NOTE | 2019-02-05 10:51 | NUR ---
ASSUMED CARE AT APPROX 0715. PATIENT A/O X4. DENIES PAIN. UP X1 ASSIST GB AND WALKER. CALLS APPROPRIATELY FOR ASSISTANCE. COMPLETED MEMORY TASK- CALLED FOR MORNING MEDS, WAS ABLE TO RECALL NAMES OF ALL MEDICATIONS, NEEDED ASSIST WITH 1/3 TO RECALL DOSE. PARTICIPATING IN THERAPY. OUT TO DINING ROOM FOR MEALS. FALL PRECAUTIONS IN PLACE. WILL CONTINUE TO MONITOR.
--- NOTE | 2019-02-05 11:09 | PLAN ---
[facility] [place] [address] REHAB UNIT PLAN OF CARE Name: JAMIE WALSH Justin Room #: 511-P [facility] IN .R.#: [id number] Admission: 01/22/19 ������������������ Attend Phys: Chi Wilcox MD Discharge: ������������������ Date of : 37 Report #: [id number] THIS REPORT FOR: //name// CC: Bharat Wilcox DATE OF SERVICE: 01/24/2019 PROGRESS NOTE/OVERALL PLAN OF CARE SUBJECTIVE: The patient was seen earlier. Last recorded temperature 36.5, pulse 62, respirations 18. She has been involved in the therapy program. Transfers have been mod assist. Gait min assist 45 feet with a front-wheeled walker. In occupational therapy, lower body dressing is dependent, upper body dressing is max assist. In speech, she has mild comprehensive deficits. She was able to be advanced from a [place] thick liquid diet to thin liquid diet and had a video swallow study done yesterday. ASSESSMENT: 1. Right middle cerebral artery infarct. 2. 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 3. Right-sided carotid stenosis. 4. Dysphagia, now advanced to thin liquids. 5. Left facial droop with some dysarthria. 6. Functional mobility, ADLs and communication deficits. 7. History of dyslipidemia. 8. Hiatal hernia. PLAN: The overall plan of care is based on the preadmission screen, post-admission physician evaluation and information garnered from therapy assessments. 1. Estimated length of stay is probably 2-3 weeks and potentially longer pending progress. 2. Medical prognosis is reasonably good. 3. Anticipated interventions includes the interdisciplinary acute inpatient rehabilitation program. 4. Anticipated functional outcomes would be for the patient to become modified independent with transfers, mobility, ADLs, cognition, communication and swallowing. 5. Discharge destination would be back to her home setting. She does have an independent [place]. 6. Expected therapy by discipline includes PT, OT and speech 1 [place] [address] REHAB UNIT PLAN OF CARE Name: JAMIE WALSH Room #: 511-P [facility] IN [facility].#: [id number] Admission: 01/22/19 ������������������ Attend Phys: Chi Wilcox MD Discharge: ������������������ Date of : 37 Report #: [id number] each five days a week throughout the duration of the acute inpatient rehabilitation stay. ��������������������������������������������� <ELECTRONICALLY SIGNED> ���������������������������������������� By: Chi Wilcox MD ��������������������������������������������� 02/05/19 1109 0928 [id number] Chi Wilcox MD /nt
--- NOTE | 2019-02-05 11:09 | H ---
[facility] [place] [address] HISTORY AND PHYSICAL Name: JAMIE WALSH Justin Room #: 511-P ADM IN ..#: [id number] Admission: 01/22/19 ������������������ Attend Phys: Chi Wilcox MD Discharge: ������������������ Date of : 39 Report #: [id number] THIS REPORT FOR: //name// CC: Bharat Wilcox DATE OF SERVICE: 01/22/2019 HISTORY AND PHYSICAL/POSTADMISSION PHYSICIAN EVALUATION: HISTORY OF PRESENT ILLNESS: The patient is an 83-year-old white female who lives independently in [facility] who had a fall in the bathroom. She lost her balance bumped her head on the left. She apparently laid on the floor for about 4 hours. She was admitted, noted to have a significant left-sided weakness, upper extremity greater than lower extremities. She was seen by Neurology, noted to have left upper and lower extremity weakness with some neglect. 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 She does have carotid stenosis and note the recommendations for her to have carotid surgery in 6 weeks to 3 months. She was noted to have significant functional deficits and has been admitted now for acute in-hospital inpatient rehabilitation. PAST MEDICAL HISTORY: Dyslipidemia, hiatal hernia, and dysphagia. PAST SURGICAL HISTORY: None. FAMILY HISTORY: Noncontributory. MEDICATIONS: Please see the full medication listing. This includes vitamins, herbals, and supplements as by report. ALLERGIES: No known drug allergies. SOCIAL HISTORY: As noted above. She lives in an independent [facility]. Did not utilize gait aids premorbidly. She has a sister and a niece and a nephew that are all in the [place] area. HABITS: No history of chronic alcohol or tobacco abuse. REVIEW OF SYSTEMS: Still has some frustration with her left-sided weakness. She has some swallowing issues that are being monitored as per speech therapy. No complaints of headache. No chest pain, shortness of breath, abdominal discomfort. No bowel or bladder changes. No focal extremity pain complaints. PHYSICAL EXAMINATION: GENERAL: An 83-year-old white female in no obvious distress. VITAL SIGNS: Last recorded temperature 98.3, pulse 80, respirations 18, blood [facility] [address] [place] [address] HISTORY AND PHYSICAL Name: JAMIE WALSH Justin Room #: 511-P [facility] IN [facility]#: [id number] Admission: 01/22/19 ������������������ Attend Phys: Chi Wilcox MD Discharge: ������������������ Date of : 37 Report #: [id number] pressure 144/72. The patient is alert. HEENT: Appeared to be benign except for her ecchymosis involving the left facial area and some left lateral periorbital ecchymosis. She does have an obvious left facial droop with depressed left nasolabial fold. She has some dysarthria. No obvious word finding problems. EOMS appear to be full. No obvious left-sided visual neglect to confrontation. CHEST: Sounded clear to auscultation. CARDIOVASCULAR: Regular rate and rhythm. ABDOMEN: Bowel sounds positive, nontender. GENITOURINARY AND RECTAL: Deferred. EXTREMITIES: Upper extremity, she has functional range of motion and strength of the right upper extremity. Left upper extremity proximal strength is 3-3+. No movement really of the wrist or fingers. Left lower extremity appeared better, more of grade 3+/5 to 4-/5. DTRs were somewhat decreased left upper and left lower extremity. There might be some mild decreased left upper and lower extremity sensation to simultaneous stimulation. She appeared to have functional strength of the right lower extremity. She is mod assist with short distance ambulation, min assist with sit to stand. IMPRESSION: An 83-year-old white female with the following problem list: 1. Right middle cerebral artery infarct. 2. Right-sided carotid stenosis. 3. 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 4. Dysphagia. Video swallow was ordered. 5. Left facial droop with some dysarthria. 6. Functional mobility, ADLs and communication deficits. 7. History of dyslipidemia. 8. Hiatal hernia. PLAN: The patient is admitted for acute in-hospital inpatient rehabilitation. From a postadmission physician evaluation perspective, there are no relevant changes since the preadmission screening. Please see the above review of prior and current medical and functional conditions and comorbidities. Please see the patient's previous and current functional status. As far as risk of complication, she does have the multiple medical comorbidities as noted above. Initial plan of care involves the interdisciplinary acute inpatient rehabilitation program with the goal of maximizing her functional independence, so she can hopefully return back to her prior living situation. Measurable functional goals would be for the patient to become modified independent with transfers, mobility and ADLs, so she can hopefully return to her prior living situation. Prognosis is reasonably good with estimated length of stay probably [facility] [address] [place] [address] HISTORY AND PHYSICAL Name: JAMIE WALSH Room #: 511-P ADM IN M.R.#: [id number] Admission: 01/22/19 ������������������ Attend Phys: Chi Wilcox MD Discharge: ������������������ Date of : 37 Report #: [id number] 2-3 weeks, pending progress. Potential barriers would include her multiple medical comorbidities and decreased functional status. ��������������������������������������������� <ELECTRONICALLY SIGNED> ���������������������������������������� By: Chi Wilcox MD ��������������������������������������������� 02/05/19 1109 [id number] Chi Wilcox MD /PMT
[2019-02-05 20:28] VITALS: BP 124/44
--- NOTE | 2019-02-06 03:01 | NUR ---
Assumed care of pt at 1915. Pt alert and oriented x4. Up in chair through the evening. Ambulates with standby assist using gait belt and walker. 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 Pt denies nausea, pain, or dypsnea. States tips of fingers on left hand feel numb and some tingling present. Has appeared to be sleeping when checked on hourly rounds. Fall precautions in place.
[2019-02-06 08:00] VITALS: BP 111/49
--- NOTE | 2019-02-06 10:12 | NUR ---
Nutrition: Pt seen for rehab f/u. Breakfast intake 100%, other meals >50%. No problems with appetite, mentioned there is too much food on the plate to eat. No muscle or fat wasting noted. Has been ordering alternative items off menu. No new wt since mid Jan, previous wt hx stable. Low nutritional risk.
--- NOTE | 2019-02-06 16:47 | NUR ---
ASSUMED CARE OF PT AT 0715. PT IS A&OX4. IS ON ROOM AIR. IS UP WITH 1 ASSIST, ALEXANDER W. FALL PRECAUTIONS & HOURLY ROUNDING MAINTAINED. IS STABLE. DENIES PAIN. LABS & VITALS REVIEWED. PT IS CURRENTLY RESTING UP IN CHAIR. CALL LIGHT WITHIN REACH. WILL CONTINUE TO MONITOR.
[2019-02-06 21:00] VITALS: BP 148/51
--- NOTE | 2019-02-07 03:33 | NUR ---
ASSUMED CARE OF PT AT 1915. PT ALERT AND ORIENTED X4, CALM AND COOPERATIVE. UP IN CHAIR THROUGH THE EVENING. DENIES PAIN, DYPSNEA OR NAUSEA. AMBULATES TO BATHROOM WITH STANDBY ASSIST OF ONE USING GAIT BELT AND WALKER. HAD APPEARED TO BE SLEEPING WHEN CHECKED ON HOURLY ROUNDS. AT THIS TIME, PT AWAKE, SITTING IN RECLINER. CHAIR ALARM ON.
[2019-02-07 07:30] VITALS: BP 123/45
--- NOTE | 2019-02-07 14:44 | NUR ---
ASSUMED CARES AT 0700. VSS ON RA. ALERT AND ORIENTED X4. ABLE TO VOID HER NEEDS. REPORTS SLEPT GOOD. UP WITH SBA WITH A WALKER/GB. UP TO DINNING ROOM FOR MEALS. PT CONTINUES TO HAVE LEFT SIDED HEMIPARESIS AND HAS TROUBLE FOCUSING ON OBJECTS ON THE LEFT SIDE BUT GETTING BETTER. Q1H VISUAL CHECKS. CALL LIGHT WITHIN REACH. FALL PRECAUTIONS IN PLACE. WILL CONTINUE TO MONITOR AND OFFER SUPPORT. HER GOALS ARE TO GET STRONGER AND ABLE TO TAKE CARE OF HERSELF AT HOME. LAST BM WAS 3 DAYS AGO. REFUSED LAXATIVE AND PRUNE JUICE, BUT TOOK APPLE JUICE. WILL CONTINUE TO MONITOR BM. DENIES PAIN, SOB, N/V. HAS NO CONCERNS AT THIS MOMENT. CONTINENT BLADDER, HAS URGENCY. ASSISTED TO BATHROOM PER REQUEST.
[2019-02-07 20:18] VITALS: BP 142/50
--- NOTE | 2019-02-08 07:02 | NUR ---
UP TO BATHROOM WITH STEADY GAIT DESPITE LEFT-SIDED WEAKNESS. HAS BEEN AWAKE SINCE 429 SITTING UP IN CHAIR. CALLS APPROPRIATELY FOR MEDS AND ASSIST TO BATHROOM
[2019-02-08 09:46] VITALS: BP 116/81
--- NOTE | 2019-02-08 10:52 | NUR ---
ASSUMED CARE OF PT AT 0715. PT IS A&OX4 WITH SOME SLURRED SPEECH. IS ON ROOM AIR. IS STABLE. IS UP WITH 1 ASSIST, GB, WALKER TO ALL MEALS. FALL PRECAUTIONS & HOURLY ROUNDING CONTINUED THIS SHIFT. 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 LABS & VITALS REVEIWED. PT IS CURRENTLY UP IN CHAIR. CALL LIGHT WITHIN REACH. WILL CONTINUE TO MONITOR.
[2019-02-08 19:38] VITALS: BP 140/54
--- NOTE | 2019-02-09 03:43 | NUR ---
ASSUMED PT CARE 1899. PT ALERT AND ORIENTED. REASSESSMENT COMPLETED. PT DENIES PAIN. PT CALLED IN NIGHT MEDICINE PER THERAPY REGIMEN. VGSS. CONTINUED HOURLY ROUNDING. WILL CONTINUE POC UNTIL EOS.
[2019-02-09 09:43] VITALS: BP 115/57
--- NOTE | 2019-02-09 11:44 | NUR ---
FAXED REFERRAL TO [facility] FOR [facility]. SPOKE WITH LILLY IN INTAKE AND THEY RECEIVED REFERRAL AND WILL REVIEW. ANTICIPATE DC 02/11. DCP TO FOLLOW.
--- NOTE | 2019-02-09 14:57 | NUR ---
ASSUMED CARES AT 0700. LAST BM WAS 5 DAYS AGO. DOESN'T WANT TO TAKE LAXATIVE. PRUNE JUICE GIVEN. NOTIFIED DR. CHANDLER AND HE REDUCES IRON DOSE. ALERT AND ORIENTED X4. ABLE TO VOID HER NEEDS. REPORTS SLEPT FAIR LAST NIGHT. UP WITH SBA WITH A WALKER/GB. UP TO DINNING ROOM FOR MEALS. PT CONTINUES TO HAVE LEFT SIDED HEMIPARESIS AND HAS TROUBLE FOCUSING ON OBJECTS ON THE LEFT SIDE BUT GETTING BETTER. PT WOULD LIKE TO BE M.I IN ROOM. DISCUSSED WITH OT/PT AND WILL GET ORDER FOR M.I. Q1H VISUAL CHECKS. CALL LIGHT WITHIN REACH. FALL PRECAUTIONS IN PLACE. WILL CONTINUE TO MONITOR AND OFFER SUPPORT. HER GOALS ARE TO GET STRONGER AND ABLE TO TAKE CARE OF HERSELF AT HOME. CONT BLADDER, HAS URGENCY, ASSIST TO BATHROOM. WILL CONTINUE TO MONITOR BM. DENIES PAIN, SOB, N/V. HAS NO CONCERNS AT THIS MOMENT.
[2019-02-09 19:50] VITALS: BP 134/54
--- NOTE | 2019-02-10 06:00 | NUR ---
UP TO BATHROOM WITH SBA TO VOID, SOMETIMES NEEDS REMINDER TO PULL UP LEFT SIDE OF PANTS. HAD TOTAL OF 5 SMALL BMs IN PIECES OVERNINGHT, MOST OF THEM EARLY IN SHIFT.
[2019-02-10 08:00] VITALS: BP 119/48
--- NOTE | 2019-02-10 08:44 | NUR ---
ASSUMED CARES AT 0700. HAD MULTIPLE STOOLS LAST NIGHT. ALERT AND ORIENTED X4. ABLE TO VOID HER NEEDS. REPORTS SLEPT FAIR LAST NIGHT. UP WITH SBA WITH A WALKER/GB. UP TO DINNING ROOM FOR BREAKFAST PT CONTINUES TO HAVE LEFT SIDED HEMIPARESIS AND HAS TROUBLE FOCUSING ON OBJECTS ON THE LEFT SIDE BUT GETTING BETTER. PT WOULD LIKE TO BE M.I IN ROOM. DISCUSSED WITH OT/PT AND WILL GET ORDER FOR M.I. OFFERED SUPPORTIVFE CARE. VSS ON ROOM AIR. PT CALLED OUT FOR MEDS AND KNOW HER MEDS. REASSESSMENT PER CHART. DISCUSSED GOALS FOR TODAY WITH PT.Q1H VISUAL CHECKS. CALL LIGHT WITHIN REACH. FALL PRECAUTIONS IN PLACE. WILL CONTINUE TO MONITOR AND OFFER SUPPORT.
--- NOTE | 2019-02-10 13:24 | NUR ---
team meeting, recommendation : dc 02/11/19 back to [facility], intermitted private duty, supervision with cooking, independent with medication management, still requires assistance with bill paying. sister to stay few days with her. [facility] ( pt, ot, st, nursing ).
--- NOTE | 2019-02-10 14:59 | NUR ---
FAXED REFERRAL TO [facility] LEFT MS WITH ADM. THAT PT. IS DISCHARGING TOMORROW. DCP TO FOLLOW.
[2019-02-10 16:17] VITALS: BP 119/48
[2019-02-10 19:35] VITALS: BP 132/41
--- NOTE | 2019-02-11 00:38 | NUR ---
PATIENT AOX4 MAKES NEEDS KNOWN. PATIENT IS UP AT AYAAN. PATIENT DENIED PAIN OR DISCOMFORT. PATIENT AMBULATES SLOWLY IN THE ROOM WITH STEADY GAITS. PATIENT ENCOURAGED FLUIDS. PATIENT CALM AND COOPERATIVE WITH MEDS AND CARE. PATIENT IN BED ASLEEP AT THIS TIME BREATHING REGULAR AND UNLABOURED
[2019-02-11 07:45] VITALS: BP 111/48
[2019-02-11 09:17] VITALS: BP 119/48
--- NOTE | 2019-02-11 09:44 | NUR ---
ASSUMED CARE AT APPROX 0715. PATIENT A/O X4. DENIES PAIN. VSS. UP MOD I IN ROOM WITH ROLLATOR WALKER. PARTICIPATING IN GRAD DAY THERAPY. CALLED FOR MEDICATIONS APPROPRIATELY AND RECALLED NAMES OF MEDS. PHYSICIAN CONTACTED FOR ORDERS, WILL CALL PRESCRIPTIONS TO PHARMACY ONCE RECEVIED. FRON WHEELED WALKER DELIVERED TO PATIENT'S ROOM, CM NOTIFIED. AWAITING FURTHER ORDERS. WILL CONTINUE TO MONITOR.
[2019-02-11 09:49] VITALS: BP 119/48
[2019-02-11] MEDS ORDERED: LIPITOR 20 MG T20 M1 PO (10:01)
[2019-02-11] MEDS ORDERED: ASPIRIN EC325 M1 PO (10:02)
[2019-02-11 10:22] VITALS: BP 119/48
--- NOTE | 2019-02-11 10:49 | NUR ---
PT. DISCHARGING TODAY TO [facility] WITH [facility]. FAXED DC ORDERS/SUMMARY SPOKE WITH KATIE IN ADM. SHE RECEIVED DC ORDERS AND WILL NOTIFY PT. OF TIME OF VISITS.
== END 2019-02-11 11:00 | disposition home health service (06) | DRG 56 ==
LOC: ENTRNSPT 02-11 10:44 → EDTRNSPTSTS 02-11 10:46
PROVIDERS: Internal Medicine Geriatric Medicine; Nurse Practitioner Family; ADMIT Physical Medicine & Rehabilitation
DX: I69.354 Hemiplegia and hemiparesis following cerebral infarction affecting left non-dominant side (principal); I63.9 Cerebral infarction, unspecified; R13.10 Dysphagia, unspecified; R29.810 Facial weakness; R47.1 Dysarthria and anarthria; E78.5 Hyperlipidemia, unspecified; K44.9 Diaphragmatic hernia without obstruction or gangrene; I65.21 Occlusion and stenosis of right carotid artery; K59.00 Constipation, unspecified
CPT/HCPCS: 10112